=== PATIENT | male | born 1965 | race Two or more races ===

== ENCOUNTER 2018-03-28 06:35 | Day surgery (SDC) | payer OTHER | END 2018-03-28 09:45 | disposition home or self-care (01) | LOC: AMB-ENDOS 06:35 → CIR.AMB 13:00 | DX: K57.30 Diverticulosis of large intestine without perforation or abscess without bleeding (principal) ==

== ENCOUNTER 2023-06-02 11:34 | Emergency (ER) | payer OTHER ==
[~2023-06-02] VITALS: Ht 170.2 cm; Wt 72.6 kg
[2023-06-02] MEDS ORDERED: METFORMIN HCL1000 M3 (11:55)
== END 2023-06-02 19:19 | disposition home or self-care (01) ==
LOC: ER 11:34
PROVIDERS: General Practice
DX: M54.50 Low back pain, unspecified (principal); E11.9 Type 2 diabetes mellitus without complications; Z79.84 Long term (current) use of oral hypoglycemic drugs; Z91.041 Radiographic dye allergy status

== ENCOUNTER 2025-07-29 06:00 | Day surgery (SDC) | payer OTHER ==
[2025-07-24 10:34] LABS: BASO % 0.6 % (0.1-1.2); EOS # 0.79 (0.04-0.54); EOS % 6.3 % (0.7-7.0); LYMPH # 2.81 (1.18-3.74); LYMPH % 22.5 % (19.3-53.1); MEAN PLATELET VOLUME 12.50 fl (9.4-12.4); MONO # 0.87 (0.24-0.82); MONO % 7.0 % (4.7-12.5); NEUT # 7.88 (1.56-6.13); NEUT % 63.3 % (34.0-71.1); RED CELL DISTRIBUTION WIDTH 13.4 % (11.6-14.4)
[2025-07-24 10:35] LABS: URINE APPEARANCE Clear; URINE BILIRRUBIN Negative (NEGATIVE); URINE BLOOD Trace; URINE COLOR Yellow; URINE GLUCOSE Negative (NEGATIVE); URINE KETONE Negative (NEGATIVE); URINE LEUKOCYTE Negative; URINE NITRATE Negative; URINE PROTEIN Trace (NEGATIVE); URINE UROBILINOGEN 0.2 E.U./dl
[2025-07-24 10:40] LABS: URINE EPITHELIAL CELLS 3.2 uL (0.0-38.8); URINE RBC 9.2 uL (0.0-20.8); URINE WBC 2.7 uL (0.0-23.2)
[2025-07-24 10:41] VITALS: BP 139/83
[2025-07-24 11:19] LABS: INR 1.03
[2025-07-24 11:20] LABS: BUN CREA RATIO 24.0 (7.0-25.0); CREATININE SERUM 0.93 mg/dL (0.70-1.30); GFR 83.45; GLUCOSE FASTING 109.0 mg/dL (65-100); OSMOLALITY SERUM 293.0 MOSM/KG (275-295)
[2025-07-24 11:33] LABS: URINE BACTERIA 2.3 uL (0.0-1933); URINE CAST 0.14 uL (0.0-1.40)
[~2025-07-29 06:00] MED LIST: CARAFATE1 GM PO; LIPITOR40 M1 PO; METFORMIN HCL1000 M3; METFORMIN HCL500 M3 PO; PROTONIX20 MG; PROTONIX40 MG; PROTONIX40 MG PO; SIMVASTATIN5 MG; TRAM1TAB98 PO
[2025-07-29] MEDS ORDERED: ENOXAPARIN SODIUM 40 MG/0.4 ML SYRINGE SUBCUTANEO ONE (06:54)
[2025-07-29] MEDS ORDERED: CEFTRIAXONE SODIUM 2,000 MG VIAL ONE (06:54)
[2025-07-29] MEDS ORDERED: METRONIDAZOLE/SODIUM CHLORIDE 500 MG/100 ML PIGGYBACK IV ONE (06:54)
[2025-07-29] MEDS ORDERED: BUPIVACAINE HCL/MPF 0.5% 30ML VIAL ONE (07:19)
[2025-07-29] MEDS ORDERED: CHLORHEXIDINE GLUCONATE 120 ML BOTTLE TOP ONE (07:53)
[2025-07-29] MEDS ORDERED: SUGAMMADEX SODIUM 200 MG/2 ML VIAL IV ONE (08:52)
[2025-07-29] MEDS ORDERED: CELEBREX200MG PO (09:28)
[2025-07-29] MEDS ORDERED: NEURONTIN300 MG PO (09:28)
[2025-07-29] MEDS ORDERED: PERCOCET 5-3251 EACH PO (09:28)
[2025-07-29] MEDS ORDERED: POLY119PG PO (09:28)
== END 2025-07-29 11:35 | disposition home or self-care (01) ==
LOC: CIR.AMB 06:00
PROVIDERS: ATTEND Surgery
DX: K40.90 Unilateral inguinal hernia, without obstruction or gangrene, not specified as recurrent (principal)
CPT/HCPCS: 49650; C1781